=== PATIENT | female | born 1995 | race Caucasian/White ===

== ENCOUNTER 2017-12-20 04:15 | Emergency (ER) | payer OTHER, BC, MEDICAID ==
[2017-12-20] MEDS ORDERED: LIDOCAINE 1%/EPI (MDV) 50 ML INJ INJ (05:00)
[2017-12-20] MEDS: LIDOCAINE 1%/EPI (1:100,000) (MDV) 20 ML INJ (06:23)
[2017-12-20] MEDS: HYDROCODONE/APAP (5/325) TAB PO (06:27)
[2017-12-20] MEDS: DIPHTH/TET/ACEL PERTUSS (ADULT) 0.5 ML VIAL IM* (06:28)
[2017-12-20] MEDS: BACITRACIN 0.9 GM OINT TOP (06:51)
== END 2017-12-20 07:04 | disposition home or self-care (01) ==
LOC: FTE 04:15
DX: S01.01XA Laceration without foreign body of scalp, initial encounter (principal); S06.0X0A Concussion without loss of consciousness, initial encounter; W20.8XXA Other cause of strike by thrown, projected or falling object, initial encounter; Y92.9 Unspecified place or not applicable; Z23 Encounter for immunization
CPT/HCPCS: 12011; 70450; 70486; 72125; 81025; 90471; 90715; 99284-25